=== PATIENT | male | born 1950 | race Two or more races ===

== ENCOUNTER 2020-10-22 15:44 | Inpatient (IN) | payer MEDICARE, OTHER ==
[~2020-10-22] VITALS: Ht 165.1 cm; Wt 77.6 kg
--- NOTE | 2020-10-22 16:43 | NUR ---
THE PATIENT BIBSELF FOR LEFT HEEL WOUND AND LOWER BACK PAIN. RATES PAIN 6/10. IN ROOM AIR AND DENIES SOB. RESPIRATION REGULAR AND UNLABORED. WILL CONTINUE TO MONITOR THE PATIENT.
[2020-10-22] MEDS ORDERED: MAG HYDROX/AL HYDROX/SIMETH 30 ML UDC PO ONE (17:00)
[2020-10-22] MEDS ORDERED: KETOROLAC TROMETHAMINE INJ 60 MG/2 ML VIAL IM ONE (17:00)
[2020-10-22] MEDS ORDERED: LIDOCAINE VISCOUS 2% UD 15 ML UDC MM ONE (17:00)
[2020-10-22] MEDS ORDERED: FAMOTIDINE (20 MG) 20 MG TABLET PO ONE (17:00)
[2020-10-22] MEDS ORDERED: CYCLOBENZAPRINE 10 MG TABLET PO ONE (17:00)
[2020-10-22] MEDS ORDERED: LIDOCAINE VISCOUS 2% UD 15 ML UDC ONE (17:27)
[2020-10-22] MEDS ORDERED: KETOROLAC TROMETHAMINE INJ 30 MG/ML VIAL ONE (17:27)
[2020-10-22] MEDS ORDERED: FAMOTIDINE (20 MG) 20 MG TABLET ONE (17:28)
[2020-10-22] MEDS ORDERED: MAG HYDROX/AL HYDROX/SIMETH 30 ML UDC ONE (17:28)
[2020-10-22] MEDS ORDERED: CYCLOBENZAPRINE 10 MG TABLET ONE (17:28)
[2020-10-22 18:03] LABS: BASOPHILS # (AUTO) 0.1 K/uL (0.0-0.2); BASOPHILS % (AUTO) 1.1 % (0.0-2.0); EOSINOPHILS % (AUTO) 3.8 % (0.0-6.0); HEMATOCRIT 37 % (33-45); HEMOGLOBIN 11.8 g/dL (11.5-14.8); LYMPHOCYTES % (AUTO) 23.1 % (20.0-44.0); MEAN CORPUSCULAR HGB CONC 32 g/dl (31.0-36.0); MEAN CORPUSCULAR VOLUME 86 fL (82-100); MONOCYTES # (AUTO) 1.2 K/uL (0.1-1.30); MONOCYTES % (AUTO) 9.3 % (2.0-12.0); NEUTROPHILS % (AUTO) 62.7 % (43.0-81.0); PLATELET COUNT (AUTO) 250 K/uL (150-450); RED BLOOD CELL COUNT(AUTO) 4.25 MIL/uL (4.0-5.2); WHITE BLOOD COUNT (AUTO) 12.8 K/uL (4.3-11.0)
[2020-10-22 18:11] LABS: CALCIUM, SERUM 8.4 mg/dL (8.5-10.1); CREATININE 0.9 mg/dL (0.6-1.3); POTASSIUM 3.7 mmol/L (3.5-5.1)
[2020-10-22 18:20] LABS: C-REACTIVE PROTEIN 0.3 mg/dL (0.0-0.9)
--- NOTE | 2020-10-22 18:36 | NUR ---
ANASTASIIA CRISIS LODE MINER CALLED FOR CONSULT. ETA 1 HOUR.
[2020-10-22] MEDS ORDERED: ACETAMINOPHEN 325 MG TABLET PO PRN (19:00)
[2020-10-22] MEDS ORDERED: MAG HYDROX/AL HYDROX/SIMETH 30 ML UDC PO PRN (19:00)
[2020-10-22] MEDS ORDERED: HYDROCODONE/APAP 10/325MG TABLET PO PRN (19:00)
[2020-10-22] MEDS ORDERED: Z GUARD REMEDY 2 OZ OINT TP PRN (19:00)
[2020-10-22] MEDS ORDERED: MAGNESIUM HYDROXIDE 30 ML UDC PO PRN (19:00)
[2020-10-22] MEDS ORDERED: DEXTROSE 50%-WATER 50 ML DISP.SYRIN IV PRN (19:00)
[2020-10-22] MEDS ORDERED: ONDANSETRON HCL/PF 4 MG/2 ML VIAL IVP PRN (19:00)
--- NOTE | 2020-10-22 19:15 | NUR ---
ROOM 105
--- NOTE | 2020-10-22 19:34 | NUR ---
CALLED LAB FOR PCR SWAB
--- NOTE | 2020-10-22 19:34 | NUR ---
REPORT GIVEN TO NURSE TUTU
--- NOTE | 2020-10-22 19:43 | NUR ---
COVID PCR SWAB DONE AND SENT TO THE LAB
--- NOTE | 2020-10-22 19:44 | NUR ---
THE PATIENT IS TRANSFERED TO ASSIGNED ROOM IN STABLE
[2020-10-22 20:00] VITALS: BP 138/70
[2020-10-22] MEDS: ATORVASTATIN 40 MG TABLET PO SCH (21:22)
[2020-10-22] MEDS: BLOOD SUGAR DIAGNOSTIC 1 EACH STRIP IN SCH (21:22)
[2020-10-22] MEDS: TRAZODONE 50 MG TABLET PO SCH (21:22)
[2020-10-22] MEDS: HYDROCODONE/APAP 5/325MG TABLET PO PRN (21:22)
[2020-10-22] MEDS: ENOXAPARIN SODIUM 40 MG/0.4 ML DISP.SYRIN SQ SCH (21:23)
[2020-10-22] MEDS: INSULIN REGULAR, HUMAN 100 UNIT/ML 3 ML VIAL SQ PRN (21:31)
[2020-10-23 04:00] VITALS: BP 105/60
[2020-10-23 06:13] LABS: BASOPHILS # (AUTO) 0.1 K/uL (0.0-0.2); BASOPHILS % (AUTO) 0.6 % (0.0-2.0); EOSINOPHILS % (AUTO) 6.4 % (0.0-6.0); HEMATOCRIT 37 % (33-45); LYMPHOCYTES # (AUTO) 2.6 K/uL (0.8-4.8); LYMPHOCYTES % (AUTO) 30.6 % (20.0-44.0); MEAN CORPUSCULAR HGB CONC 33 g/dl (31.0-36.0); MEAN CORPUSCULAR VOLUME 85 fL (82-100); MONOCYTES # (AUTO) 0.8 K/uL (0.1-1.30); MONOCYTES % (AUTO) 9.4 % (2.0-12.0); NEUTROPHILS # (AUTO) 4.5 K/uL (1.8-8.9); PLATELET COUNT (AUTO) 223 K/uL (150-450); RED BLOOD CELL COUNT(AUTO) 4.33 MIL/uL (4.0-5.2); WHITE BLOOD COUNT (AUTO) 8.6 K/uL (4.3-11.0)
[2020-10-23 06:51] LABS: THYROID STIMULATING HORMONE 0.925 uIU/mL (0.358-3.74)
[2020-10-23 07:48] LABS: CALCIUM, SERUM 8.4 mg/dL (8.5-10.1); POTASSIUM 3.9 mmol/L (3.5-5.1)
[2020-10-23 07:49] LABS: CREATININE 0.9 mg/dL (0.6-1.3); MAGNESIUM 2.1 mg/dL (1.8-2.4); PHOSPHORUS 2.9 mg/dL (2.5-4.9)
[2020-10-23] MEDS: PANTOPRAZOLE 40 MG TABLET.DR PO SCH (07:53)
--- NOTE | 2020-10-23 08:00 | NUR ---
RN NOTES PT IS STABLE AND A/O X3. PT IS AMBULATING AND BRP. PT IS DIABETIC AND HAS A NON HEALING L HEEL WOUND. PCR PENDING. WILL CONTINUE TO MONITOR. PT ON LOW BED POSITION, CALL LIGHT WITHIN REACH
[2020-10-23] MEDS: BLOOD SUGAR DIAGNOSTIC 1 EACH STRIP IN SCH ×4 (08:10→22:44)
[2020-10-23] MEDS: GABAPENTIN 400 MG CAPSULE PO SCH ×3 (08:14→17:06)
[2020-10-23] MEDS: MIRTAZAPINE 15 MG TABLET PO SCH (08:14)
[2020-10-23] MEDS: INSULIN REGULAR, HUMAN 100 UNIT/ML 3 ML VIAL SQ PRN ×4 (08:14→22:50)
[2020-10-23] MEDS: LISINOPRIL (20MG) 20 MG TABLET PO SCH (08:15)
[2020-10-23] MEDS ORDERED: GABA800T11 PO (08:52)
[2020-10-23] MEDS ORDERED: OMEP40CA21 PO (08:52)
[2020-10-23] MEDS ORDERED: LISI40TA13 PO (08:52)
[2020-10-23] MEDS ORDERED: TRAZ-257 PO (08:52)
[2020-10-23] MEDS ORDERED: MIRT-121 PO (08:52)
[2020-10-23] MEDS ORDERED: DOCU-141 PO (08:52)
[2020-10-23] MEDS ORDERED: ATOR20TA PO (08:52)
[2020-10-23] MEDS: HYDROCODONE/APAP 5/325MG TABLET PO PRN (11:34)
[2020-10-23 12:00] VITALS: BP 142/74
--- NOTE | 2020-10-23 18:58 | NUR ---
RN CLOSING NOTES; PT A/OX4, AMBULATORY AND CAN MAKE HIS NEEDS KNOWS. ALL MEDICATION GIVEN. PT CLEAN, DRY, AND COMFORTABLE WITH CALL LIGHT WITHIN REACH. ENDORSE TO ROLLER HELPER RN IN STABLE CONDITION.
[2020-10-23 20:00] VITALS: BP 122/60
--- NOTE | 2020-10-23 20:00 | NUR ---
ms rn notes PTS IN BED AWAKE ALERT X4 AND RESPONSIVE ABLE TO MAKE NEEDS KNOWN ,AMBULATORY , NO SOB NO DISTRESS NOTED ON R/A SATING 100% ALL DUE MEDS GIVEN ORDERED ,NO ASE NOTED. ALL NEEDS ATTENDED TOO ,KEPT PTS CLEAN DRY AND COMFORTABLE ,V/S STABLE AFEBRILE . WILL CONTINUE TO MONITOR PTS .
[2020-10-23] MEDS: ENOXAPARIN SODIUM 40 MG/0.4 ML DISP.SYRIN SQ SCH (21:18)
[2020-10-23] MEDS: TRAZODONE 50 MG TABLET PO SCH (21:19)
[2020-10-23] MEDS: ATORVASTATIN 40 MG TABLET PO SCH (21:19)
--- NOTE | 2020-10-23 22:00 | NUR ---
MS RN NOTES BLOOD SUGAR AT 10PM IS 195 MG/DL 3 UNITS OF INSULIN GIVEN PER SLIDING SCALE , PTS ON PO DIET , WILL CHECK BLOOD SUGAR AGAIN IN AM .
[2020-10-24 04:00] VITALS: BP 122/80
[2020-10-24 06:25] LABS: BASOPHILS # (AUTO) 0.1 K/uL (0.0-0.2); BASOPHILS % (AUTO) 0.7 % (0.0-2.0); EOSINOPHILS % (AUTO) 5.9 % (0.0-6.0); HEMATOCRIT 37 % (39-51); HEMOGLOBIN 12.3 g/dL (13.5-17.5); LYMPHOCYTES # (AUTO) 2.7 K/uL (0.8-4.8); LYMPHOCYTES % (AUTO) 26.5 % (20.0-44.0); MEAN CORPUSCULAR HGB CONC 33 g/dl (31.0-36.0); MEAN CORPUSCULAR VOLUME 85 fL (80-96); MONOCYTES # (AUTO) 0.9 K/uL (0.1-1.30); MONOCYTES % (AUTO) 9.1 % (2.0-12.0); NEUTROPHILS # (AUTO) 5.8 K/uL (1.8-8.9); NEUTROPHILS % (AUTO) 57.8 % (43.0-81.0); PLATELET COUNT (AUTO) 242 K/uL (150-450); RED BLOOD CELL COUNT(AUTO) 4.35 MIL/uL (4.5-6.0)
[2020-10-24 06:26] LABS: CALCIUM, SERUM 8.4 mg/dL (8.5-10.1); CREATININE 0.9 mg/dL (0.6-1.3)
--- NOTE | 2020-10-24 07:34 | NUR ---
MS RN NOTES ENDORSE PTS TO COLBY RN DAY SHIFT FOR CONTINUITY FOR CONTINUITY OF CARE
--- NOTE | 2020-10-24 07:57 | NUR ---
RN NOTES PT IS STABLE AND A/O X3. PT IS AMBULATING AND BRP. PT IS DIABETIC AND HAS A NON HEALING L HEEL WOUND. PCR PENDING. WILL CONTINUE TO MONITOR. PT CURRENTLY EATING. PT ON LOW BED POSITION, CALL LIGHT WITHIN REACH.
[2020-10-24] MEDS: BLOOD SUGAR DIAGNOSTIC 1 EACH STRIP IN SCH ×4 (08:22→23:34)
[2020-10-24] MEDS ORDERED: METF-440 PO (08:26)
[2020-10-24] MEDS: GABAPENTIN 400 MG CAPSULE PO SCH ×3 (08:27→17:15)
[2020-10-24] MEDS: PANTOPRAZOLE 40 MG TABLET.DR PO SCH (08:27)
[2020-10-24] MEDS: MIRTAZAPINE 15 MG TABLET PO SCH (08:39)
[2020-10-24] MEDS: LISINOPRIL (20MG) 20 MG TABLET PO SCH (08:39)
[2020-10-24] MEDS: INSULIN REGULAR, HUMAN 100 UNIT/ML 3 ML VIAL SQ PRN ×4 (08:42→23:33)
--- NOTE | 2020-10-24 09:30 | NUR ---
WOUND CARE CONSULT: PT PRESENTS WITH CALLUS TO RT HEEL AND OPEN AREA TO LEFT HEEL, NO DRAINAGE, PRESENT ON ADMISSION. PT STATES THAT LEFT HEEL IS TENDER. DPM CONSULT CALLED TO DR BELCZYK. DENSON IN AGREEMENT WITH PLAN OF CARE.
[2020-10-24] MEDS ORDERED: MUPIROCIN OINT 2% 22 GM TUBE TP SCH (10:00)
[2020-10-24] MEDS: MUPIROCIN OINT 2% 22 GM TUBE TP SCH ×2 (10:51→23:30)
[2020-10-24] MEDS: LIDOCAINE 5% (PATCH) 1 EA PATCH TP SCH (11:00)
[2020-10-24 12:00] VITALS: BP 118/77
--- NOTE | 2020-10-24 12:00 | NUR ---
per darien quiroz hold discharge until tomorrow patient psyche meds need to be reviewed by psychiatrist,watch case polisher made aware.
[2020-10-24] MEDS ORDERED: DULOXETINE HCL 30 MG CAPSULE.DR PO SCH (17:00)
--- NOTE | 2020-10-24 18:37 | NUR ---
RN CLOSING NOTES PT AWAKE AND STABLE. A/O X4 AND IS BEING DISCHARGED 10/25 MORNING. VS ARE STABLE. ACCUCHECK 154 AND GIVEN 2 UNITS INSULIN. SKIN INTACT. PT ABLE TO AMBULATE BRP. L ARM 20 GAUGE IV. PT L WOUND HEEL CHANGED TOFAY A @1000. WILL CONTINUE TO MONITOR
[2020-10-24 20:00] VITALS: BP 131/69
--- NOTE | 2020-10-24 20:00 | NUR ---
ms rn notes PTS IN BED AWAKE ALERT X4 AND RESPONSIVE ABLE TO MAKE NEEDS KNOWN ,AMBULATORY , NO SOB NO DISTRESS NOTED ON R/A SATING 98% ALL DUE MEDS GIVEN ORDERED ,NO ASE NOTED. ALL NEEDS ATTENDED TOO ,KEPT PTS CLEAN DRY AND COMFORTABLE ,V/S STABLE AFEBRILE . WILL CONTINUE TO MONITOR PTS .
[2020-10-24] MEDS: HYDROCODONE/APAP 5/325MG TABLET PO PRN (20:13)
[2020-10-24] MEDS: ENOXAPARIN SODIUM 40 MG/0.4 ML DISP.SYRIN SQ SCH (20:14)
[2020-10-24] MEDS: TRAZODONE 50 MG TABLET PO SCH (22:00)
[2020-10-24] MEDS: ATORVASTATIN 40 MG TABLET PO SCH (22:00)
--- NOTE | 2020-10-24 23:36 | NUR ---
ms rn notes Blood sugar of 179 mg/dl 3 units og regular insulin given per sliding sliding scale pts in po diet
[2020-10-25 04:00] VITALS: BP 93/53
--- NOTE | 2020-10-25 05:57 | NUR ---
MS RN NOTES PTS IN BED STABLE V/S NO PAIN COMPLAIN, NO SOB NO DISTRESS NOTED , POSSIBLE D/C TODAY ,ALL NEEDS MEET DURING THE SHIFT WILL ENDORSE TO RN DAY SHIFT FOR CONTINUITY OF CARE.
--- NOTE | 2020-10-25 07:30 | NUR ---
RN NOTE PATIENT OBSERVED ON BED AWAKE, ALERT AND ORIENTED X4 ABLE TO VERBALIZE NEEDS, ON ROOM AIR BREATHING O2 SAT OF 98% EVEN AND UNLABORED, BRP, WITH LEFT HAND GAUGE 20 PATENT, FLUSHING WELL, BED WHEELS LOCK, SAFETY MEASURES OBSERVED, CALL LIGHT WITHIN REACH, WILL CONTINUE TO MONITOR.
[2020-10-25] MEDS: PANTOPRAZOLE 40 MG TABLET.DR PO SCH (08:07)
[2020-10-25] MEDS: GABAPENTIN 400 MG CAPSULE PO SCH ×2 (08:09→13:35)
[2020-10-25] MEDS: LISINOPRIL (20MG) 20 MG TABLET PO SCH (08:09)
[2020-10-25] MEDS: BLOOD SUGAR DIAGNOSTIC 1 EACH STRIP IN SCH ×2 (08:23→12:08)
[2020-10-25] MEDS: INSULIN REGULAR, HUMAN 100 UNIT/ML 3 ML VIAL SQ PRN ×2 (08:24→12:18)
[2020-10-25] MEDS: LIDOCAINE 5% (PATCH) 1 EA PATCH TP SCH (11:20)
[2020-10-25] MEDS: MUPIROCIN OINT 2% 22 GM TUBE TP SCH (11:28)
[2020-10-25 12:00] VITALS: BP 124/71
--- NOTE | 2020-10-25 15:29 | NUR ---
RN NOTES PATIENT [facility]GED [facility]. REPORT GIVEN TO RN MORNING SHIFT. PATIENT PICKED VIA GURNEY BY [facility]. PATIENT LEFT STABLE AND VS WITHIN NORMAL LIMITS DURING DISCHARGED. PATIENT SIGNED BELONGING LIST AND HOME MEDICATION GIVEN DIRECTLY TO PATIENT. DISCHARGE INSTRUCTIONS GIVEN, PATIENT VERBALIZED UNDERSTANDING.
--- NOTE | 2020-10-25 15:29 | NUR ---
RN NOTE GAVE REPORT TO NURSE HATHAWAY.
[2020-10-25] MEDS ORDERED: MIRTAZAPINE 15 MG TABLET PO SCH ×2 (22:00)
== END 2020-10-25 15:32 | DRG 552 ==
LOC: ER 15:47 → MEDSG1 19:34 → EDSEX 19:34
PROVIDERS: ADMIT Nurse Practitioner Acute Care; ATTEND Nurse Practitioner Acute Care
DX: M54.40 Lumbago with sciatica, unspecified side (principal); F33.1 Major depressive disorder, recurrent, moderate; L97.429 Non-pressure chronic ulcer of left heel and midfoot with unspecified severity; E11.621 Type 2 diabetes mellitus with foot ulcer; E78.5 Hyperlipidemia, unspecified; E11.40 Type 2 diabetes mellitus with diabetic neuropathy, unspecified; E66.9 Obesity, unspecified; Z20.822 Contact with and (suspected) exposure to COVID-19; I10 Essential (primary) hypertension; Z79.84 Long term (current) use of oral hypoglycemic drugs; F41.9 Anxiety disorder, unspecified; Z68.28 Body mass index [BMI] 28.0-28.9, adult
CPT/HCPCS: 36415; 73630-TC; 80048-TC; 80061-TC; 82962-TC; 83735-TC; 84100-TC; 84443-TC; 85025-TC; 85652-TC; 86140-TC; 87081-TC; C9803; G0378; J1650; J1815; J1885; U0003

== ENCOUNTER 2021-10-12 20:08 | Emergency (ER) | payer MEDICARE, OTHER ==
[~2021-10-12] VITALS: Ht 180.3 cm; Wt 86.2 kg
[~2021-10-12 20:08] MED LIST: ATOR20TA PO; DOCU-141 PO; GABA800T11 PO; LISI40TA13 PO; METF-440 PO; MIRT-121 PO; OMEP40CA21 PO; TRAZ-257 PO
[2021-10-12 20:29] VITALS: BP 91/48
--- NOTE | 2021-10-12 20:57 | NUR ---
ALMA FROM [facility] FOR WORSENING CHRONINC BACK PAIN. S/P LOWER BACK SURGERY 09/16. PT A/OX4. TOLERATING R/A WELL WITH NO SOB. AMBULATORY WITH ASSISTANCE.
[2021-10-12] MEDS ORDERED: MAG HYDROX/AL HYDROX/SIMETH 30 ML UDC PO ONE (21:30)
[2021-10-12] MEDS ORDERED: HYDROCODONE/APAP 5/325MG TABLET PO ONE (21:30)
[2021-10-12] MEDS ORDERED: MAG HYDROX/AL HYDROX/SIMETH 30 ML UDC ONE (21:54)
[2021-10-12] MEDS ORDERED: HYDROCODONE/APAP 5/325MG TABLET ONE (21:55)
--- NOTE | 2021-10-12 22:32 | NUR ---
[facility] CALLED FOR TRANSPORT. ETA 20-30 MINUTES.
--- NOTE | 2021-10-12 22:33 | NUR ---
REPORT GIVEN TO MAGGY FROM [facility]
--- NOTE | 2021-10-12 22:47 | NUR ---
REPORT GIVEN TO NIXON LANDON UNIT 230. [facility] AT PT'S BEDSIDE TO D/C,
== END 2021-10-12 23:12 ==
LOC: ER 20:10
DX: G89.29 Other chronic pain (principal); M54.50 Low back pain, unspecified; I10 Essential (primary) hypertension; E11.9 Type 2 diabetes mellitus without complications; Z79.899 Other long term (current) drug therapy
CPT/HCPCS: 72131-TC

== ENCOUNTER 2021-10-31 13:04 | Inpatient (IN) | payer MEDICARE, OTHER ==
[~2021-10-31] VITALS: Ht 170.2 cm; Wt 72.6 kg
--- NOTE | 2021-10-31 13:25 | NUR ---
SHAY LEW FROM SNF, SEND FOR AGRESSIVE BEHAVIOR. MEDICAL AND PSYCH CLEARANCE FOR GPS ADMISSION. COOPERATIVE COMMUNITY HEALTH PROGRAM COORDINATOR C/O LOWER BACK PAIN. PLACED ON BED, AAOX4, COOPERATIVE- CALM, BREATHING EVEN AND UNLABORED.
[2021-10-31] MEDS ORDERED: ATOR40TA PO (13:30)
[2021-10-31] MEDS ORDERED: ARGI1POW13 PO (13:30)
[2021-10-31] MEDS ORDERED: AMIN887L PO (13:30)
[2021-10-31] MEDS ORDERED: DEXT15DR6 EACHEYE (13:30)
[2021-10-31] MEDS ORDERED: INSU100V3 IJ (13:30)
[2021-10-31] MEDS ORDERED: HYDR-3980 PO (13:30)
[2021-10-31] MEDS ORDERED: MULT-447 PO (13:30)
[2021-10-31] MEDS ORDERED: ACET325T53 PO (13:30)
[2021-10-31] MEDS ORDERED: CYCL10TA9 PO (13:30)
[2021-10-31] MEDS ORDERED: ASPI-1169 PO (13:30)
[2021-10-31] MEDS ORDERED: NA P133E RC (13:30)
[2021-10-31] MEDS ORDERED: CALC500T53 PO (13:30)
[2021-10-31] MEDS ORDERED: LORA-259 PO (13:30)
[2021-10-31] MEDS ORDERED: PANT40TA2 PO (13:30)
[2021-10-31] MEDS ORDERED: BISA10SU11 RC (13:30)
[2021-10-31] MEDS ORDERED: CALC-494 PO (13:30)
[2021-10-31] MEDS ORDERED: OLAN5TAB3 PO (13:30)
[2021-10-31] MEDS ORDERED: DULO60CA45 PO (13:30)
[2021-10-31] MEDS ORDERED: ASCO500C17 PO (13:30)
[2021-10-31] MEDS ORDERED: SENN-175 PO (13:30)
--- NOTE | 2021-10-31 13:55 | NUR ---
COVID SWAB COLLECTED AND SENT TO LAB
[2021-10-31 14:01] LABS: BASOPHILS # (AUTO) 0.1 K/uL (0.0-0.2); BASOPHILS % (AUTO) 0.7 % (0.0-2.0); EOSINOPHILS % (AUTO) 4.3 % (0.0-6.0); HEMATOCRIT 37 % (39-51); HEMOGLOBIN 11.8 g/dL (13.5-17.5); LYMPHOCYTES # (AUTO) 1.7 K/uL (0.8-4.8); LYMPHOCYTES % (AUTO) 20.6 % (20.0-44.0); MEAN CORPUSCULAR HGB CONC 32 g/dl (31.0-36.0); MEAN CORPUSCULAR VOLUME 86 fL (80-96); MONOCYTES % (AUTO) 11.6 % (2.0-12.0); NEUTROPHILS # (AUTO) 5.2 K/uL (1.8-8.9); NEUTROPHILS % (AUTO) 62.8 % (43.0-81.0); PLATELET COUNT (AUTO) 336 K/uL (150-450); RED BLOOD CELL COUNT(AUTO) 4.29 MIL/uL (4.5-6.0); WHITE BLOOD COUNT (AUTO) 8.3 K/uL (4.3-11.0)
--- NOTE | 2021-10-31 14:20 | NUR ---
URINE SAMPLE SENT TO LAB
[2021-10-31 14:29] LABS: CALCIUM, SERUM 8.8 mg/dL (8.5-10.1); CARBON DIOXIDE 26 mmol/L (21-32); CHLORIDE 101 mmol/L (98-107); CREATININE 1.1 mg/dL (0.6-1.3); GLUCOSE 257 mg/dL (74-106); POTASSIUM 4.7 mmol/L (3.5-5.1); SODIUM SERUM 135 mmol/L (136-145); UREA NITROGEN, BLOOD 18 mg/dL (7-18)
[2021-10-31 14:50] LABS: BILIRUBIN,URINE NEGATIVE (NEGATIVE); COLOR,URINE YELLOW (YELLOW); LEUKOCYTE ESTERASE ,URINE NEGATIVE (NEGATIVE); NITRITE, URINE NEGATIVE (NEGATIVE); PROTEIN,URINE NEGATIVE (NEGATIVE); UGLUCOSE 500 MG/DL mg/dL (NEGATIVE); UROBILINOGEN,URINE 0.2 EU/dL (0.2)
[2021-10-31 15:03] LABS: ACETAMINOPHEN 6 ug/ml (10-30); ALANINE AMINOTRANSFERASE 23 U/L (12-78); ALKALINE PHOSPHATASE 105 U/L (46-116); ASPARTATE AMINOTRANSFERASE 21 U/L (15-37); BILIRUBIN,DIRECT 0.1 mg/dL (0.0-0.2); BILIRUBIN,TOTAL 0.3 mg/dL (0.2-1.0); TOTAL PROTEIN, SERUM 7.5 g/dL (6.4-8.2)
[2021-10-31 15:06] LABS: ALCOHOL, BLOOD < 3 mg/dL (0-0)
[2021-10-31 15:28] LABS: BACTERIA,URINE None seen /HPF (None Seen); RBC,URINE 0-2 /HPF (0-2); SQUAMOUS EPITHELIAL CELL,UR 0-2 /HPF (None Seen); WBC,URINE 0-2 /HPF (0-3)
[2021-10-31] MEDS ORDERED: BISACODYL SUPP (10 MG) 10 MG/SUPP.RECT SUPP.RECT RC PRN (16:30)
[2021-10-31] MEDS ORDERED: NA PHOS,M-B/NA PHOS,DI-BA 1 EA ENEMA RC PRN (16:30)
--- NOTE | 2021-10-31 16:46 | NUR ---
REPORT GIVEN TO ARTURO PIERSON ROOM 213 FOR SHANITA
[2021-10-31 17:45] VITALS: BP 136/72
--- NOTE | 2021-10-31 17:46 | NUR ---
GPS/RN RECEIVED PT FROM ER ON 515 FOR GD ORIGINALLY FROM [facility]. ON FACE TO FACE ASSESSMENT NO SI/HI REPORTED.ADMITTING ORDERS FROM DR RUSSO RECEIVED AND CARRIED OUT. DR KEEN SEEN THE PT. FOOD TRAY ORDERED. BELONGINGS CHECKED FOR CONTRABAND. WILL ENDORSE TO STONE PROCESSING MACHINE OPERATOR TO CONTINUE WITH ADMISSION.
[2021-10-31 17:58] VITALS: BP 136/72
[2021-10-31] MEDS ORDERED: ACETAMINOPHEN 325 MG TABLET PO PRN (18:00)
[2021-10-31] MEDS ORDERED: BLOOD SUGAR DIAGNOSTIC 1 EACH STRIP IN ONE ×2 (18:00→21:30)
[2021-10-31] MEDS ORDERED: QUETIAPINE FUMARATE 25 MG TABLET PO PRN (18:00)
[2021-10-31] MEDS: DOCUSATE SODIUM 100 MG CAPSULE PO SCH (18:17)
[2021-10-31] MEDS: CYCLOBENZAPRINE 10 MG TABLET PO SCH (18:17)
[2021-10-31] MEDS: HYDROCODONE/APAP 10/325MG TABLET PO PRN (19:44)
[2021-10-31] MEDS: MAG HYDROX/AL HYDROX/SIMETH 30 ML UDC PO PRN (19:47)
--- NOTE | 2021-10-31 19:47 | NUR ---
RN NOTES: PAIN PT. C/O LOWER BACK PAIN 10/24 PRN NARCO 10 MG/325 MG 1 TAB PO GIVEN PER PT. REQUEST, WILL CONTINUE TO MONITOR.
--- NOTE | 2021-10-31 19:49 | NUR ---
RN NOTES: PT. C/O OF INDIGESTION PRN MAALOX 30 ML GIVEN PER PT. REQUEST, WILL CONTINUE TO MONITOR.
--- NOTE | 2021-10-31 20:24 | NUR ---
RN NOTES: RECEIVED PATIENT RESTING IN ROOM, NO S/SX OF ACUTE DISTRESS NOTED.EASILY AGITATED, ANXIOUS, DISORGANIZED,NEEDY , PARANOID, NEEDS FREQUENT REDIRECTION. DENIES SI/HI AT THIS TIME.ENCOURAGE TO VERBALIZED ANY FEELING OR CONCERN, SAFETY MEASURES IN PLACE. WILL CONTINUE TO MONITOR Q15MIN ROUNDS FOR SAFETY AND BEHAVIOR.
[2021-10-31 20:38] VITALS: BP 126/77
[2021-10-31] MEDS: SENNOSIDES 8.6 MG TABLET PO SCH (21:21)
[2021-10-31 22:00] VITALS: BP 125/74
[2021-10-31] MEDS ORDERED: DEXTROSE 50%-WATER 50 ML DISP.SYRIN IV PRN (22:00)
[2021-10-31] MEDS: BLOOD SUGAR DIAGNOSTIC 1 EACH STRIP IN SCH (22:05)
[2021-10-31] MEDS: INSULIN REGULAR, HUMAN 100 UNIT/ML 3 ML VIAL SQ PRN (22:07)
[2021-10-31] MEDS: ZOLPIDEM TARTRATE 5 MG TABLET PO PRN (22:11)
--- NOTE | 2021-10-31 22:11 | NUR ---
RN NOTES: INSOMNIA PATIENT IS C/O UNABLE TO SLEEP, ANXIOUS, RESTLESS. PRN AMBIEN 5 MG PO ADMINISTERED ORDERED BY MD. WILL CONTINUE TO MONITOR .
--- NOTE | 2021-10-31 23:49 | NUR ---
RN NOTES : ADMISSION NOTES: ADMITTED THIS 71Y/O MALE PATIENT FROM [facility] ADMITTED TO 5150 HOLD GD , PER HOLD PT. NON COMPLIANT WITH CARE, AGGRESSIVE TOWARDS STAFF AND OTHER RESIDENTS. UPON FACE TO FACE ASSESSMENT PATIENT IS A&O X3, ANXIOUS ,EASILY AGITATED, RESTLESS ,PARANOID ,DISHELVED , NEEDY DEMEDNING , HYPERVERBAL ,BIZAAR BEHAVIOR, JUMPING ONE TOPIC TO ANOTHER, NEEDS FREQUENTLY REDIRECTIONS , DENIES SI /HI AT THIS TIME, PT. IS POOR HISTORIAN, POOR INSIGHT ,POOR JUDGEMENT , BOTH MD AWARE AND NOTIFIED OF THE ADMISSION, BELONGINGS CONTRABAND WERE DONE , PT. REFUSED SIGNS ADMISSION CONSENT PAPER DUE TO TIRED, REFUSED ID PHOTOS FOR CHART , ,ENCOURAGED PT. TO TAKE SHOWER, PT. RIGHTS DISCUSS BY TECHNICAL ASSISTANCE CONSULTANT , PROVIDE THE PT. WITH HANDBOOK, AND MEDICATIONS GUIDE, ENVIRONMENTAL SAFETY CHECK DONE, ENCOURAGED PT. VERBALIZED ANY FEELING CONCERN TO STAFF, ORIENT TO UNIT POLICY, NO ACUTE DISTRESS NOTED,VITAL SIGNS WNL ,DENIES ANY PAIN AT THIS TIME,WILL CONTINUE TO MONITOR FOR Q15 SAFETY AND BEHAVIOR.
[2021-11-01] MEDS: HYDROCODONE/APAP 10/325MG TABLET PO PRN ×2 (01:53→16:04)
--- NOTE | 2021-11-01 01:54 | NUR ---
DANGELO NOTES : ANXIETY PT. C/O LOWER BACK PAIN 09/23 PRN NARCO 10 MG/325 MG 1 TAB PO GIVEN PER PT. REQUEST, WILL CONTINUE TO MONITOR. Addendum: 11/01/21 at 0155 by JESSICA FERRER RN PAIN
--- NOTE | 2021-11-01 01:55 | NUR ---
RN NOTES : PAIN PT. C/O LOWER BACK PAIN 09/23 PRN NARCO 10 MG/325 MG 1 TAB PO GIVEN PER PT. REQUEST, WILL CONTINUE TO MONITOR.
--- NOTE | 2021-11-01 07:12 | NUR ---
RN NOTES: PLACED CALLED PT'S DAUGHTER ALBARO # [phone] AND LEFT MESSAGES REGARDING ABOUT PT. ADMIT TO NEHA PRITCHETT.
[2021-11-01 07:24] LABS: ALBUMIN 2.9 g/dL (3.4-5.0); BILIRUBIN,TOTAL 0.4 mg/dL (0.2-1.0); CALCIUM, SERUM 8.8 mg/dL (8.5-10.1); CREATININE 1.1 mg/dL (0.6-1.3); POTASSIUM 3.9 mmol/L (3.5-5.1); TOTAL PROTEIN, SERUM 7.3 g/dL (6.4-8.2)
[2021-11-01 07:31] LABS: CHOLESTEROL 118 mg/dL (<200); HDL CHOLESTEROL 41 mg/dL (40-60); LDL 60 mg/dL (0-99); TRIGLYCERIDES 109 mg/dL (30-150)
[2021-11-01] MEDS: BLOOD SUGAR DIAGNOSTIC 1 EACH STRIP IN SCH ×4 (07:53→21:34)
[2021-11-01 08:00] VITALS: BP 128/78
[2021-11-01] MEDS: INSULIN REGULAR, HUMAN 100 UNIT/ML 3 ML VIAL SQ PRN ×4 (08:05→21:37)
[2021-11-01] MEDS ORDERED: DULOXETINE HCL 30 MG CAPSULE.DR PO SCH (09:00)
[2021-11-01] MEDS: PANTOPRAZOLE 40 MG TABLET.DR PO SCH (09:12)
[2021-11-01] MEDS: POLYVINYL ALCOHOL 15 ML BOTTLE EACHEYE SCH (09:12)
[2021-11-01] MEDS: CYCLOBENZAPRINE 10 MG TABLET PO SCH ×2 (09:12→16:34)
[2021-11-01] MEDS: LISINOPRIL (20MG) 20 MG TABLET PO SCH (09:13)
[2021-11-01] MEDS: ASPIRIN 81 MG TAB.CHEW PO SCH (09:13)
[2021-11-01] MEDS: ACETAMINOPHEN 325 MG TABLET PO SCH (09:13)
[2021-11-01] MEDS: DOCUSATE SODIUM 100 MG CAPSULE PO SCH ×2 (09:13→16:33)
[2021-11-01] MEDS: MULTIVIT W/MINERALS 1 TAB TABLET PO SCH (09:13)
[2021-11-01] MEDS: CALCIUM CARBONATE (1250) 500 MG TABLET PO SCH (09:15)
[2021-11-01] MEDS ORDERED: NALOXONE PREFILLED SYRINGE 2 MG/2 ML SYRINGE ONE (10:42)
[2021-11-01] MEDS ORDERED: ONDANSETRON HCL/PF 4 MG/2 ML VIAL ONE (10:45)
[2021-11-01 16:00] VITALS: BP 102/69
--- NOTE | 2021-11-01 16:04 | NUR ---
RN NOTES PRN NORCO 10/325 MG 1 TAB GIVEN FOR BACK PAIN 09/23. WILL REASSESS IN 45 MINUTES.
[2021-11-01] MEDS: MAGNESIUM HYDROXIDE 30 ML UDC PO PRN (16:11)
--- NOTE | 2021-11-01 16:12 | NUR ---
RN NOTES PATIENT REQUESTED MOM FOR CONSTIPATION. MOM GIVEN AT 1612 FOR CONSTIPATION.
[2021-11-01] MEDS: QUETIAPINE FUMARATE 25 MG TABLET PO SCH (16:33)
[2021-11-01] MEDS: ATORVASTATIN 40 MG TABLET PO SCH (17:41)
[2021-11-01 19:35] VITALS: BP 100/58
[2021-11-01 20:05] VITALS: BP 100/58
[2021-11-01] MEDS: SENNOSIDES 8.6 MG TABLET PO SCH (21:09)
[2021-11-01] MEDS: TRAZODONE 50 MG TABLET PO SCH (21:09)
[2021-11-01] MEDS: MAG HYDROX/AL HYDROX/SIMETH 30 ML UDC PO PRN (21:20)
--- NOTE | 2021-11-01 21:22 | NUR ---
RN NOTE: PRN MAALOX GIVEN PATIENT C/O INDIGESTION/UPSET STOMACH AND REQUESTED TO TAKE MEDICINE. PRN MAALOX 30 ML PO ADMINISTERED. WILL CONTINUE TO MONITOR FOR ANY CHANGES.
[2021-11-01] MEDS ORDERED: OLANZAPINE 5 MG TABLET PO SCH (22:00)
[2021-11-01 23:45] VITALS: BP 109/74
[2021-11-01] MEDS: ZOLPIDEM TARTRATE 5 MG TABLET PO PRN (23:54)
[2021-11-02] MEDS: BLOOD SUGAR DIAGNOSTIC 1 EACH STRIP IN SCH ×4 (07:30→21:18)
[2021-11-02 08:00] VITALS: BP 131/75
[2021-11-02] MEDS: LISINOPRIL (20MG) 20 MG TABLET PO SCH (09:28)
[2021-11-02] MEDS: DOCUSATE SODIUM 100 MG CAPSULE PO SCH ×2 (09:28→17:15)
[2021-11-02] MEDS: CYCLOBENZAPRINE 10 MG TABLET PO SCH ×2 (09:28→17:15)
[2021-11-02] MEDS: MULTIVIT W/MINERALS 1 TAB TABLET PO SCH (09:28)
[2021-11-02] MEDS: QUETIAPINE FUMARATE 25 MG TABLET PO SCH ×2 (09:29→17:15)
[2021-11-02] MEDS: CALCIUM CARBONATE (1250) 500 MG TABLET PO SCH (09:29)
[2021-11-02] MEDS: PANTOPRAZOLE 40 MG TABLET.DR PO SCH (09:32)
[2021-11-02] MEDS: ASPIRIN 81 MG TAB.CHEW PO SCH (09:32)
[2021-11-02] MEDS: ACETAMINOPHEN 325 MG TABLET PO SCH (09:39)
[2021-11-02] MEDS: POLYVINYL ALCOHOL 15 ML BOTTLE EACHEYE SCH (09:46)
--- NOTE | 2021-11-02 09:55 | NUR ---
THELMA Clinical Note: Pt placed on a hold for 5150 for GD. Pt has been aggressive towards staff and has been depressed. Patient currently resides at [address] [place] [phone], . THELMA contacted admin was unavailable THELMA left a message through supervisor painting shipyard Elvi who took the message to Juanita admin if pt can return back.
--- NOTE | 2021-11-02 09:55 | NUR ---
THELMA Initial Discharge Note: Patient currently resides at [address] [place] [phone], . THELMA contacted admin was unavailable THELMA left a message through receptionist secretary Elvi who took the message to Juanita khan if pt can return back. THELMA will work with the MD, family, and pt to help coordinate appropriate discharge.
--- NOTE | 2021-11-02 09:56 | NUR ---
Treatment Plan: Pt refused to sign treatment plan and was suspicious.
--- NOTE | 2021-11-02 11:23 | NUR ---
THELMA Family Contact: THELMA attempted to contact patient's daughter Ashley ([phone]) and was unavailable. THELMA was unable to leave voicemail at this time.
[2021-11-02] MEDS: INSULIN REGULAR, HUMAN 100 UNIT/ML 3 ML VIAL SQ PRN ×3 (11:34→21:21)
--- NOTE | 2021-11-02 11:34 | NUR ---
SNF Contact: THELMA mitchell with Juanita khan from [address] [facility], [place] [address], who stated that they cannot accept pt back due to pt requiring a psych facility.
[2021-11-02 16:00] VITALS: BP 115/69
[2021-11-02] MEDS: ATORVASTATIN 40 MG TABLET PO SCH (18:12)
[2021-11-02 20:01] VITALS: BP 126/74
[2021-11-02] MEDS: HYDROCODONE/APAP 10/325MG TABLET PO PRN (20:20)
--- NOTE | 2021-11-02 20:24 | NUR ---
GPS RN NOTES: PATIENT REQUESTED FOR PAIN MEDICATION D/T BACK PAIN. HYDROCODONE 10/325MG GIVEN PO AT 2020. WILL CONTINUE TO MONITOR.
[2021-11-02] MEDS: DIVALPROEX SODIUM 125 MG TABLET.DR PO SCH (20:56)
[2021-11-02] MEDS: MAG HYDROX/AL HYDROX/SIMETH 30 ML UDC PO PRN (20:57)
--- NOTE | 2021-11-02 20:58 | NUR ---
GPS RN NOTES: PATIENT C/O INDIGESTION. MAALOX 30ML GIVEN PO AT 2056. WILL CONTINUE TO MONITOR.
[2021-11-02] MEDS ORDERED: QUETIAPINE FUMARATE 25 MG TABLET PO SCH (21:00)
[2021-11-02] MEDS: TRAZODONE 50 MG TABLET PO SCH (21:01)
[2021-11-02] MEDS: SENNOSIDES 8.6 MG TABLET PO SCH (21:01)
[2021-11-02] MEDS: ZOLPIDEM TARTRATE 5 MG TABLET PO PRN (22:17)
--- NOTE | 2021-11-02 22:18 | NUR ---
GPS RN NOTES: AMBIEN 5MG GIVEN PO AT 2217. WILL CONTINUE TO MONITOR.
[2021-11-03] MEDS: HYDROCODONE/APAP 10/325MG TABLET PO PRN ×2 (04:45→22:22)
--- NOTE | 2021-11-03 04:47 | NUR ---
RN note: patient c/o of back pain,yelling,screaming of pain,requested and given [id number] PO as ordered.Will monitor for the effectiveness within a hour.
[2021-11-03 07:05] LABS: ALBUMIN 3.1 g/dL (3.4-5.0); BILIRUBIN,TOTAL 0.4 mg/dL (0.2-1.0); CALCIUM, SERUM 9.4 mg/dL (8.5-10.1); POTASSIUM 4.1 mmol/L (3.5-5.1); TOTAL PROTEIN, SERUM 7.9 g/dL (6.4-8.2)
[2021-11-03 08:00] VITALS: BP 120/68
[2021-11-03] MEDS: BLOOD SUGAR DIAGNOSTIC 1 EACH STRIP IN SCH ×4 (08:02→21:29)
[2021-11-03] MEDS: DOCUSATE SODIUM 100 MG CAPSULE PO SCH ×2 (09:20→16:46)
[2021-11-03] MEDS: ASPIRIN 81 MG TAB.CHEW PO SCH (09:20)
[2021-11-03] MEDS: CYCLOBENZAPRINE 10 MG TABLET PO SCH ×2 (09:20→16:46)
[2021-11-03] MEDS: MULTIVIT W/MINERALS 1 TAB TABLET PO SCH (09:20)
[2021-11-03] MEDS: PANTOPRAZOLE 40 MG TABLET.DR PO SCH (09:20)
[2021-11-03] MEDS: CALCIUM CARBONATE (1250) 500 MG TABLET PO SCH (09:20)
[2021-11-03] MEDS: LISINOPRIL (20MG) 20 MG TABLET PO SCH (09:21)
[2021-11-03] MEDS: POLYVINYL ALCOHOL 15 ML BOTTLE EACHEYE SCH (09:22)
[2021-11-03] MEDS: DIVALPROEX SODIUM 125 MG TABLET.DR PO SCH ×3 (09:24→20:15)
[2021-11-03] MEDS: INSULIN REGULAR, HUMAN 100 UNIT/ML 3 ML VIAL SQ PRN ×4 (09:26→21:25)
[2021-11-03] MEDS: ACETAMINOPHEN 325 MG TABLET PO SCH (09:34)
[2021-11-03] MEDS: MAG HYDROX/AL HYDROX/SIMETH 30 ML UDC PO PRN ×2 (13:45→20:26)
--- NOTE | 2021-11-03 14:10 | NUR ---
SNF Referral: SW [facility] clinicals to [facility] [address] [place] [address], . SW sent H & P, progress notes, and medication list for placement.
[2021-11-03 16:00] VITALS: BP 111/67
[2021-11-03] MEDS: METHYL SALICYLATE/MENTHOL 28GM 28 GM TUBE TP SCH (16:26)
[2021-11-03] MEDS: ATORVASTATIN 40 MG TABLET PO SCH (17:42)
--- NOTE | 2021-11-03 19:23 | NUR ---
RN-NOTES PATIENT VISIBLE IN THE UNIT,A/O X3 GUARDED,NO ACUTE DISTRESS NOTED.COMPLIANT WITH MEDICATIONS.NOTED PATIENT WITH NEEDY,DEMANDING ,EASILY ANGRY AND ARGUMENTATIVE BEHAVIOR.ALL NEEDS ATTENDED AND ANTICIPATED. AMBULATORY WITH WALKER. WILL CONT. MONITORING FOR SAFETY AND BEHAVIOR. WILL ENDORSE TO INCOMING NURSE FOR CONTINUITY OF CARE.
[2021-11-03 20:07] VITALS: BP 115/64
[2021-11-03] MEDS: QUETIAPINE FUMARATE 25 MG TABLET PO SCH (20:25)
[2021-11-03] MEDS: SENNOSIDES 8.6 MG TABLET PO SCH (21:04)
[2021-11-03] MEDS: TRAZODONE 50 MG TABLET PO SCH (21:04)
[2021-11-03] MEDS: MAGNESIUM HYDROXIDE 30 ML UDC PO PRN (22:30)
[2021-11-03] MEDS: ZOLPIDEM TARTRATE 5 MG TABLET PO PRN (22:53)
[2021-11-04 08:00] VITALS: BP 103/69
[2021-11-04] MEDS: BLOOD SUGAR DIAGNOSTIC 1 EACH STRIP IN SCH ×4 (08:19→21:19)
[2021-11-04] MEDS: LISINOPRIL (20MG) 20 MG TABLET PO SCH (09:00)
--- NOTE | 2021-11-04 09:00 | NUR ---
NURSE NOTE: PT UP IN ROOM. DOING AM CARE. BREATHING EVEN AND NONLABORED. PT A/O X3 GUARDED,NO ACUTE DISTRESS NOTED. COMPLIANT WITH MEDICATIONS. AMBULATORY WITH WALKER. WILL CONT MONITOR.
[2021-11-04] MEDS: CALCIUM CARBONATE (1250) 500 MG TABLET PO SCH (09:22)
[2021-11-04] MEDS: ASPIRIN 81 MG TAB.CHEW PO SCH (09:22)
[2021-11-04] MEDS: CYCLOBENZAPRINE 10 MG TABLET PO SCH ×2 (09:22→17:41)
[2021-11-04] MEDS: ACETAMINOPHEN 325 MG TABLET PO SCH (09:22)
[2021-11-04] MEDS: PANTOPRAZOLE 40 MG TABLET.DR PO SCH (09:22)
[2021-11-04] MEDS: MULTIVIT W/MINERALS 1 TAB TABLET PO SCH (09:25)
[2021-11-04] MEDS: DOCUSATE SODIUM 100 MG CAPSULE PO SCH ×2 (09:25→17:41)
[2021-11-04] MEDS: DIVALPROEX SODIUM 125 MG TABLET.DR PO SCH ×3 (09:25→20:40)
[2021-11-04] MEDS: INSULIN REGULAR, HUMAN 100 UNIT/ML 3 ML VIAL SQ PRN ×4 (09:28→22:10)
[2021-11-04] MEDS: METHYL SALICYLATE/MENTHOL 28GM 28 GM TUBE TP SCH (09:38)
[2021-11-04] MEDS: POLYVINYL ALCOHOL 15 ML BOTTLE EACHEYE SCH (09:38)
--- NOTE | 2021-11-04 10:36 | NUR ---
Court Notification: No contact to notify for 4228.
--- NOTE | 2021-11-04 12:54 | NUR ---
Court Hearing: Patient's court hearing for 2590 was today and it was upheld for GD.
[2021-11-04 16:00] VITALS: BP 108/75
[2021-11-04] MEDS: ATORVASTATIN 40 MG TABLET PO SCH (17:41)
--- NOTE | 2021-11-04 18:00 | NUR ---
NURSE NOTE: PT C/O PAIN AT THIS TIME LEVEL 9/10. ASKED FOR NORCO. ADMINISTERED ORDERED. WILL CONT TO MONITOR.
[2021-11-04] MEDS: MAG HYDROX/AL HYDROX/SIMETH 30 ML UDC PO PRN ×2 (18:18→22:58)
[2021-11-04] MEDS: HYDROCODONE/APAP 10/325MG TABLET PO PRN (18:18)
[2021-11-04 20:00] VITALS: BP 128/70
[2021-11-04] MEDS: QUETIAPINE FUMARATE 25 MG TABLET PO SCH (20:40)
[2021-11-04] MEDS: TRAZODONE 50 MG TABLET PO SCH (21:09)
[2021-11-04] MEDS: SENNOSIDES 8.6 MG TABLET PO SCH (21:09)
--- NOTE | 2021-11-04 23:00 | NUR ---
RN NOTE: PRN MAALOX GIVEN PATIENT C/O UPSET STOMACH AND INSISTED TO TAKE MAALOX AT THIS TIME. PRN MAALOX 30 ML PO ADMINISTERED ORDERED BY .
[2021-11-05] MEDS: ZOLPIDEM TARTRATE 5 MG TABLET PO PRN (01:08)
--- NOTE | 2021-11-05 01:12 | NUR ---
RN NOTE: INSOMNIA PATIENT C/O INABILITY TO SLEEP AND INSISTED TO TAKE SLEEPING MEDICINE RIGHT NOW. PRN AMBIEN 5 MG PO ADMINISTERED ORDERED BY .
[2021-11-05 08:00] VITALS: BP 128/88
[2021-11-05] MEDS: BLOOD SUGAR DIAGNOSTIC 1 EACH STRIP IN SCH ×4 (08:27→21:31)
[2021-11-05] MEDS: METHYL SALICYLATE/MENTHOL 28GM 28 GM TUBE TP SCH (08:27)
[2021-11-05] MEDS: DOCUSATE SODIUM 100 MG CAPSULE PO SCH ×2 (08:28→16:17)
[2021-11-05] MEDS: PANTOPRAZOLE 40 MG TABLET.DR PO SCH (08:28)
[2021-11-05] MEDS: POLYVINYL ALCOHOL 15 ML BOTTLE EACHEYE SCH (08:28)
[2021-11-05] MEDS: CYCLOBENZAPRINE 10 MG TABLET PO SCH ×2 (08:28→16:18)
[2021-11-05] MEDS: DIVALPROEX SODIUM 125 MG TABLET.DR PO SCH ×3 (08:28→20:37)
[2021-11-05] MEDS: CALCIUM CARBONATE (1250) 500 MG TABLET PO SCH (08:28)
[2021-11-05] MEDS: ASPIRIN 81 MG TAB.CHEW PO SCH (08:28)
[2021-11-05] MEDS: MULTIVIT W/MINERALS 1 TAB TABLET PO SCH (08:28)
[2021-11-05] MEDS: LISINOPRIL (20MG) 20 MG TABLET PO SCH (08:29)
[2021-11-05] MEDS: INSULIN REGULAR, HUMAN 100 UNIT/ML 3 ML VIAL SQ PRN ×4 (08:31→21:33)
[2021-11-05] MEDS: ACETAMINOPHEN 325 MG TABLET PO SCH (08:35)
--- NOTE | 2021-11-05 09:19 | NUR ---
Individual Therapy: SW met with pt to conduct brief therapy. Pt stated that he has been depressed because he lost his two years ago and it has caused him depression. SW actively listened and provided emotional support.
--- NOTE | 2021-11-05 09:20 | NUR ---
THELMA Note: SW notified that pt cannot return back to [facility] due to his behavior at the facility and they are unable to manage his behavior. He was in denial but agreeable of this comic book writer to find him a different facility.
[2021-11-05 16:00] VITALS: BP 108/68
[2021-11-05] MEDS: ATORVASTATIN 40 MG TABLET PO SCH (17:06)
--- NOTE | 2021-11-05 19:18 | NUR ---
RN-NOTES PATIENT VISIBLE IN THE UNIT,A/O X3 GUARDED,NO ACUTE DISTRESS NOTED. COMPLIANT WITH MEDICATIONS. NOTED WITH NEEDY, EASILY ANGRY AND ARGUMENTATIVE BEHAVIOR. AMBULATORY WITH WALKER. ALL NEEDS ATTENDED AND ANTICIPATED. WILL CONT.MONITORING FOR SAFETY AND BEHAVIOR.WILL ENDORSE TO INCOMING NURSE FOR CONTINUITY OF CARE.
[2021-11-05] MEDS: MAG HYDROX/AL HYDROX/SIMETH 30 ML UDC PO PRN (19:27)
--- NOTE | 2021-11-05 19:53 | NUR ---
GPS MIXING PLANT OPERATOR NOTE: PATIENT RCVD AWAKE, IN HIS BEDROOM,A/O X3 GUARDED,AMBULATORY USING WALKER ,NO ACUTE DISTRESS NOTED.NOTED PATIENT WITH NEEDY,DEMANDING ,EASILY ANGRY AND ARGUMENTATIVE BEHAVIOR.WILL ANTICIPATE AND ATTEND NEEDS. WILL CONT. MONITORING FOR SAFETY AND BEHAVIOR.
[2021-11-05 20:00] VITALS: BP 104/67
[2021-11-05] MEDS: QUETIAPINE FUMARATE 25 MG TABLET PO SCH (20:34)
[2021-11-05] MEDS: SENNOSIDES 8.6 MG TABLET PO SCH (21:09)
[2021-11-05] MEDS: TRAZODONE 50 MG TABLET PO SCH (21:09)
[2021-11-05] MEDS: HYDROCODONE/APAP 10/325MG TABLET PO PRN (21:25)
--- NOTE | 2021-11-05 21:25 | NUR ---
Pt c/o lover back pain 10/24 requesting for PRN [place] medication, PRN given as ordered. Pt noted with very demanding , needy and argumentative behavior. Cont to anticipate and attend pt's needs.
--- NOTE | 2021-11-05 23:30 | NUR ---
Pt sleeping at this time, easy to arouse, will cont to monitor and anticipate needs.
[2021-11-06] MEDS: HYDROCODONE/APAP 10/325MG TABLET PO PRN ×2 (04:47→22:55)
--- NOTE | 2021-11-06 04:48 | NUR ---
Pt woke up and used call light- nurse attended pt's needs, pt c/o lower back pain again 09/23 and is requesting for prn [place] pain medicine, PRN given as ordered. Will cont to monitor.
--- NOTE | 2021-11-06 05:48 | NUR ---
FISHER OYSTER CLOSING NOTE PATIENT SLEPT WELL DURING SHIFT, IN HIS BEDROOM AWAKE ,A/O X3 GUARDED,NO ACUTE DISTRESS NOTED.COMPLIANT WITH MEDICATIONS.NOTED PATIENT NEEDY,DEMANDING ,EASILY ANGRY AND ARGUMENTATIVE BEHAVIOR.ALL NEEDS ATTENDED AND ANTICIPATED. AMBULATORY WITH WALKER. WILL CONT. MONITORING FOR SAFETY AND BEHAVIOR. WILL ENDORSE TO INCOMING AM NURSE FOR CONTINUITY OF CARE.
[2021-11-06] MEDS: BLOOD SUGAR DIAGNOSTIC 1 EACH STRIP IN SCH ×4 (06:54→21:36)
[2021-11-06] MEDS: INSULIN REGULAR, HUMAN 100 UNIT/ML 3 ML VIAL SQ PRN ×4 (06:55→22:28)
[2021-11-06 07:47] LABS: ALBUMIN 2.9 g/dL (3.4-5.0); BILIRUBIN,TOTAL 0.4 mg/dL (0.2-1.0); CALCIUM, SERUM 8.6 mg/dL (8.5-10.1); CREATININE 1.1 mg/dL (0.6-1.3); POTASSIUM 3.9 mmol/L (3.5-5.1); TOTAL PROTEIN, SERUM 7.6 g/dL (6.4-8.2)
[2021-11-06 08:00] VITALS: BP 100/60
[2021-11-06] MEDS: MULTIVIT W/MINERALS 1 TAB TABLET PO SCH (08:07)
[2021-11-06] MEDS: PANTOPRAZOLE 40 MG TABLET.DR PO SCH (08:07)
[2021-11-06] MEDS: DIVALPROEX SODIUM 125 MG TABLET.DR PO SCH ×3 (08:07→20:52)
[2021-11-06] MEDS: CALCIUM CARBONATE (1250) 500 MG TABLET PO SCH (08:08)
[2021-11-06] MEDS: DOCUSATE SODIUM 100 MG CAPSULE PO SCH ×2 (08:09→17:28)
[2021-11-06] MEDS: CYCLOBENZAPRINE 10 MG TABLET PO SCH ×2 (08:09→17:28)
[2021-11-06] MEDS: ASPIRIN 81 MG TAB.CHEW PO SCH (08:10)
[2021-11-06] MEDS: ACETAMINOPHEN 325 MG TABLET PO SCH (08:10)
[2021-11-06] MEDS: LISINOPRIL (20MG) 20 MG TABLET PO SCH (08:10)
[2021-11-06] MEDS: METHYL SALICYLATE/MENTHOL 28GM 28 GM TUBE TP SCH (08:11)
[2021-11-06] MEDS: POLYVINYL ALCOHOL 15 ML BOTTLE EACHEYE SCH (08:11)
[2021-11-06] MEDS: QUETIAPINE FUMARATE 25 MG TABLET PO SCH ×2 (08:12→20:51)
--- NOTE | 2021-11-06 09:00 | NUR ---
NURSE NOTE: PT AWAKE AND IN BED. BREATHING EVEN AND NONLABORED. PT A/O X3 GUARDED. COMPLIANT WITH MEDS AND ACCU CHECK.,NO DISTRESS NOTED. AMBULATORY WITH WALKER. WILL CONT. MONITORING FOR SAFETY AND BEHAVIOR.
[2021-11-06 16:00] VITALS: BP 116/59
[2021-11-06] MEDS: ATORVASTATIN 40 MG TABLET PO SCH (17:28)
--- NOTE | 2021-11-06 18:56 | NUR ---
RN-NOTES PATIENT VISIBLE IN THE UNIT,A/O X3 GUARDED,NO ACUTE DISTRESS NOTED. COMPLIANT WITH MEDICATIONS. NOTED WITH NEEDY, EASILY ANGRY BEHAVIOR. AMBULATORY WITH WALKER. ALL NEEDS ATTENDED AND ANTICIPATED. WILL CONT.MONITORING FOR SAFETY AND BEHAVIOR.WILL ENDORSE TO INCOMING NURSE FOR CONTINUITY OF CARE.
[2021-11-06 20:30] VITALS: BP 105/60
[2021-11-06] MEDS: MAG HYDROX/AL HYDROX/SIMETH 30 ML UDC PO PRN (20:52)
[2021-11-06] MEDS: SENNOSIDES 8.6 MG TABLET PO SCH (21:30)
[2021-11-06] MEDS: TRAZODONE 50 MG TABLET PO SCH (21:30)
--- NOTE | 2021-11-06 22:57 | NUR ---
RN NOTE: PAIN PATIENT C/O LOWER BACK PAIN 09/23 AND WANTED TO TAKE PAIN MEDICATION. PRN NORCO 10-325 MG PO ADMINISTERED. WILL CONTINUE TO MONITOR.
[2021-11-07] MEDS: BLOOD SUGAR DIAGNOSTIC 1 EACH STRIP IN SCH ×4 (07:42→21:09)
[2021-11-07 08:00] VITALS: BP 110/74
[2021-11-07] MEDS: CYCLOBENZAPRINE 10 MG TABLET PO SCH ×2 (08:38→16:28)
[2021-11-07] MEDS: DOCUSATE SODIUM 100 MG CAPSULE PO SCH ×2 (08:39→16:28)
[2021-11-07] MEDS: MULTIVIT W/MINERALS 1 TAB TABLET PO SCH (08:39)
[2021-11-07] MEDS: QUETIAPINE FUMARATE 25 MG TABLET PO SCH ×2 (08:39→20:22)
[2021-11-07] MEDS: ASPIRIN 81 MG TAB.CHEW PO SCH (08:39)
[2021-11-07] MEDS: CALCIUM CARBONATE (1250) 500 MG TABLET PO SCH (08:39)
[2021-11-07] MEDS: ACETAMINOPHEN 325 MG TABLET PO SCH (08:39)
[2021-11-07] MEDS: PANTOPRAZOLE 40 MG TABLET.DR PO SCH (08:39)
[2021-11-07] MEDS: DIVALPROEX SODIUM 125 MG TABLET.DR PO SCH ×3 (08:40→20:24)
[2021-11-07] MEDS: POLYVINYL ALCOHOL 15 ML BOTTLE EACHEYE SCH (08:40)
[2021-11-07] MEDS: METHYL SALICYLATE/MENTHOL 28GM 28 GM TUBE TP SCH (08:42)
[2021-11-07] MEDS: LISINOPRIL (20MG) 20 MG TABLET PO SCH (08:44)
[2021-11-07] MEDS: INSULIN REGULAR, HUMAN 100 UNIT/ML 3 ML VIAL SQ PRN ×3 (08:46→21:09)
[2021-11-07 16:00] VITALS: BP 106/70
[2021-11-07] MEDS: ATORVASTATIN 40 MG TABLET PO SCH (17:22)
--- NOTE | 2021-11-07 18:00 | NUR ---
RN-NOTES PATIENT VISIBLE IN THE UNIT,A/O X3 GUARDED,AMBULATORY WITH WALKER NO ACUTE DISTRESS NOTED.COMPLIANT WITH MEDICATIONS.NOTED PATIENT WITH NEEDY,DEMANDING EASILY ANGRY BEHAVIOR,YELLING AT STAFF USING FOUL LANGUAGE.ALL NEEDS ATTENDED AND ANTICIPATED. WILL CONT. MONITORING FOR SAFETY AND BEHAVIOR.WILL ENDORSE TO INCOMING NURSE FOR CONTINUITY OF CARE.
--- NOTE | 2021-11-07 19:15 | NUR ---
GPS RN NOTES RECEIVED PATIENT RESTING IN BED COMFORTABLY. A/OX3, NO S/SX OF ACUTE DISTRESS NOTED. PATIENT REMAINS ANXIOUS, DEMANDING, NEEDY, EASILY IRRITATED, SETTING LIMITS. DENIES SI/HI/AVH AT THIS TIME. VERBALIZATION OF FEELINGS ENCOURAGED. SAFETY MEASURES IN PLACE. WILL CONTINUE TO MONITOR Q15MIN ROUNDS FOR SAFETY AND BEHAVIOR.
[2021-11-07] MEDS: MAG HYDROX/AL HYDROX/SIMETH 30 ML UDC PO PRN (20:31)
[2021-11-07 20:57] VITALS: BP 120/68
[2021-11-07] MEDS: SENNOSIDES 8.6 MG TABLET PO SCH (21:02)
[2021-11-07] MEDS: TRAZODONE 50 MG TABLET PO SCH (21:02)
[2021-11-08] MEDS: HYDROCODONE/APAP 10/325MG TABLET PO PRN (01:22)
[2021-11-08] MEDS: BLOOD SUGAR DIAGNOSTIC 1 EACH STRIP IN SCH ×4 (07:30→21:21)
[2021-11-08 08:00] VITALS: BP 127/78
[2021-11-08] MEDS: CALCIUM CARBONATE (1250) 500 MG TABLET PO SCH (09:13)
[2021-11-08] MEDS: CYCLOBENZAPRINE 10 MG TABLET PO SCH ×2 (09:13→16:30)
[2021-11-08] MEDS: PANTOPRAZOLE 40 MG TABLET.DR PO SCH (09:13)
[2021-11-08] MEDS: DOCUSATE SODIUM 100 MG CAPSULE PO SCH ×2 (09:13→16:30)
[2021-11-08] MEDS: QUETIAPINE FUMARATE 25 MG TABLET PO SCH ×2 (09:13→21:11)
[2021-11-08] MEDS: LISINOPRIL (20MG) 20 MG TABLET PO SCH (09:13)
[2021-11-08] MEDS: ASPIRIN 81 MG TAB.CHEW PO SCH (09:13)
[2021-11-08] MEDS: MULTIVIT W/MINERALS 1 TAB TABLET PO SCH (09:14)
[2021-11-08] MEDS: DIVALPROEX SODIUM 125 MG TABLET.DR PO SCH ×3 (09:14→21:10)
[2021-11-08] MEDS: METHYL SALICYLATE/MENTHOL 28GM 28 GM TUBE TP SCH (09:17)
[2021-11-08] MEDS: ACETAMINOPHEN 325 MG TABLET PO SCH (09:17)
[2021-11-08] MEDS: POLYVINYL ALCOHOL 15 ML BOTTLE EACHEYE SCH (09:20)
--- NOTE | 2021-11-08 10:49 | NUR ---
RN NOTE- PT ALERT ORIENTED MAKES NEEDS KNOWN , YELLING AT TIMES DEMANDING , MED COMPLIANT WITHDRAWN ISOLATIVE
[2021-11-08] MEDS: INSULIN REGULAR, HUMAN 100 UNIT/ML 3 ML VIAL SQ PRN ×3 (12:15→21:21)
[2021-11-08 16:00] VITALS: BP 100/58
[2021-11-08] MEDS: ATORVASTATIN 40 MG TABLET PO SCH (17:18)
[2021-11-08 20:23] VITALS: BP 100/64
[2021-11-08] MEDS: TRAZODONE 50 MG TABLET PO SCH (21:12)
[2021-11-08] MEDS: MAGNESIUM HYDROXIDE 30 ML UDC PO PRN (21:13)
[2021-11-08] MEDS: SENNOSIDES 8.6 MG TABLET PO SCH (21:13)
[2021-11-08] MEDS: MAG HYDROX/AL HYDROX/SIMETH 30 ML UDC PO PRN (21:13)
[2021-11-08] MEDS: ZOLPIDEM TARTRATE 5 MG TABLET PO PRN (21:14)
--- NOTE | 2021-11-08 21:28 | NUR ---
Pt c/o insomnia. Least restrictive measures ineffective. Ambien 5 mg po prn given as ordered. Will continue to monitor.
--- NOTE | 2021-11-08 22:33 | NUR ---
Post 1 hr lakiaien effective. Pt asleep in bed easy to arouse. Frequent visual check done for safety. Will continue to monitor. Will endorse to next shift.
--- NOTE | 2021-11-09 04:27 | NUR ---
Pt c/o pain 04/23. Requested for tylenol 650 mg po prn. Tylenol 650 mg po given. Will continue to monitor.
--- NOTE | 2021-11-09 05:30 | NUR ---
Post 1 hr Tylenol effective. ND 0/10. Will continue to monitor. Will endorse to next shift.
[2021-11-09] MEDS: BLOOD SUGAR DIAGNOSTIC 1 EACH STRIP IN SCH ×4 (07:52→22:30)
[2021-11-09 08:00] VITALS: BP 102/66
[2021-11-09] MEDS: METHYL SALICYLATE/MENTHOL 28GM 28 GM TUBE TP SCH (08:48)
[2021-11-09] MEDS: POLYVINYL ALCOHOL 15 ML BOTTLE EACHEYE SCH (08:48)
[2021-11-09] MEDS: ACETAMINOPHEN 325 MG TABLET PO SCH (08:49)
[2021-11-09] MEDS: DIVALPROEX SODIUM 125 MG TABLET.DR PO SCH ×3 (08:50→21:20)
[2021-11-09] MEDS: ASPIRIN 81 MG TAB.CHEW PO SCH (08:50)
[2021-11-09] MEDS: CYCLOBENZAPRINE 10 MG TABLET PO SCH ×2 (08:50→17:45)
[2021-11-09] MEDS: CALCIUM CARBONATE (1250) 500 MG TABLET PO SCH (08:50)
[2021-11-09] MEDS: PANTOPRAZOLE 40 MG TABLET.DR PO SCH (08:50)
[2021-11-09] MEDS: DOCUSATE SODIUM 100 MG CAPSULE PO SCH ×2 (08:50→17:43)
[2021-11-09] MEDS: QUETIAPINE FUMARATE 25 MG TABLET PO SCH ×2 (08:51→21:22)
[2021-11-09] MEDS: LISINOPRIL (20MG) 20 MG TABLET PO SCH (08:54)
[2021-11-09] MEDS: MULTIVIT W/MINERALS 1 TAB TABLET PO SCH (09:55)
[2021-11-09] MEDS: INSULIN REGULAR, HUMAN 100 UNIT/ML 3 ML VIAL SQ PRN ×3 (12:48→22:34)
--- NOTE | 2021-11-09 14:28 | NUR ---
SNF Contact: SW spoke with [facility] [address] [place] [address], who stated that they do not have a bed available.
--- NOTE | 2021-11-09 14:28 | NUR ---
SNF Referral: THELMA sent clinicals to Nichole bill from [facility] ([phone]) for placement option. THELMA sent H & P, progress notes, and medication list.
[2021-11-09] MEDS: MAG HYDROX/AL HYDROX/SIMETH 30 ML UDC PO PRN ×2 (15:23→21:28)
[2021-11-09 16:00] VITALS: BP 111/73
--- NOTE | 2021-11-09 16:06 | NUR ---
SNF Contact: THELMA sent clinicals to Nichole khan from [facility] ([phone]) who stated pt is accepted.
[2021-11-09] MEDS: ATORVASTATIN 40 MG TABLET PO SCH (17:43)
[2021-11-09] MEDS: ZOLPIDEM TARTRATE 5 MG TABLET PO PRN (21:33)
[2021-11-09] MEDS: TRAZODONE 50 MG TABLET PO SCH (22:36)
[2021-11-09] MEDS: SENNOSIDES 8.6 MG TABLET PO SCH (22:36)
[2021-11-09 22:50] VITALS: BP 120/66
[2021-11-10] MEDS: BLOOD SUGAR DIAGNOSTIC 1 EACH STRIP IN SCH ×4 (07:35→21:33)
[2021-11-10 08:00] VITALS: BP 122/75
[2021-11-10] MEDS: MULTIVIT W/MINERALS 1 TAB TABLET PO SCH (08:41)
[2021-11-10] MEDS: POLYVINYL ALCOHOL 15 ML BOTTLE EACHEYE SCH (08:41)
[2021-11-10] MEDS: LISINOPRIL (20MG) 20 MG TABLET PO SCH (08:42)
[2021-11-10] MEDS: PANTOPRAZOLE 40 MG TABLET.DR PO SCH (08:42)
[2021-11-10] MEDS: ASPIRIN 81 MG TAB.CHEW PO SCH (08:42)
[2021-11-10] MEDS: ACETAMINOPHEN 325 MG TABLET PO SCH (08:43)
[2021-11-10] MEDS: DOCUSATE SODIUM 100 MG CAPSULE PO SCH ×2 (08:43→17:14)
[2021-11-10] MEDS: CALCIUM CARBONATE (1250) 500 MG TABLET PO SCH (08:43)
[2021-11-10] MEDS: DIVALPROEX SODIUM 125 MG TABLET.DR PO SCH ×4 (08:43→21:23)
[2021-11-10] MEDS: CYCLOBENZAPRINE 10 MG TABLET PO SCH ×2 (08:43→17:14)
[2021-11-10] MEDS: QUETIAPINE FUMARATE 25 MG TABLET PO SCH ×3 (08:44→21:22)
[2021-11-10] MEDS: METHYL SALICYLATE/MENTHOL 28GM 28 GM TUBE TP SCH (08:52)
[2021-11-10] MEDS: INSULIN REGULAR, HUMAN 100 UNIT/ML 3 ML VIAL SQ PRN ×4 (10:48→21:34)
[2021-11-10] MEDS: HYDROCODONE/APAP 10/325MG TABLET PO PRN ×2 (14:26→15:27)
[2021-11-10 16:10] VITALS: BP 100/63
[2021-11-10] MEDS: ATORVASTATIN 40 MG TABLET PO SCH (17:14)
--- NOTE | 2021-11-10 19:15 | NUR ---
GPS RN NOTES RECEIVED PATIENT RESTING IN BED COMFORTABLY. A/OX3, NO S/SX OF ACUTE DISTRESS NOTED. PATIENT IS COOPERATIVE TO CARE, NEEDY, DEMANDING, DENIES SI/HI/AVH AT THIS TIME. VERBALIZATION OF FEELINGS ENCOURAGED. SAFETY MEASURES IN PLACE. WILL CONTINUE TO MONITOR Q15MIN ROUNDS FOR SAFETY AND BEHAVIOR.
[2021-11-10] MEDS: TRAZODONE 50 MG TABLET PO SCH ×2 (21:22→21:54)
[2021-11-10] MEDS: SENNOSIDES 8.6 MG TABLET PO SCH (21:22)
--- NOTE | 2021-11-10 21:55 | NUR ---
GPS RN NOTES PATIENT BLOOD PRESSURE IS ON THE LOW SIDE 92/57, HR 74. RECHECKED BP 83/54, HR 85. OFFERED FLUIDS AND HEAD OF THE BED ELEVATED. PT HAS NO C/O DIZZINESS OR LIGHTHEADEDNESS AT THIS TIME. PATIENT NIGHT MEDS ARE DEPAKOTE, SEROQUEL AND TRAZADONE. NOTIFIED DR. RUSSO REGARDING ABOVE FINDINGS. DR. RUSSO ORDERED TO HOLD THE MEDS AND PUSH FLUIDS. CHARGE NURSE AWARE.
[2021-11-10] MEDS: MAG HYDROX/AL HYDROX/SIMETH 30 ML UDC PO PRN (22:04)
[2021-11-10 22:05] VITALS: BP 92/57
[2021-11-11] MEDS: ZOLPIDEM TARTRATE 5 MG TABLET PO PRN (00:19)
--- NOTE | 2021-11-11 00:19 | NUR ---
GPS RN NOTES PATIENT C/O INABILITY TO SLEEP. PRN AMBIEN 5MG PO ORDERED PER PT'S REQUEST. V/S TAKEN BP 109/80, HR 79. WILL CONTINUE TO MONITOR.
[2021-11-11] MEDS: BLOOD SUGAR DIAGNOSTIC 1 EACH STRIP IN SCH ×2 (06:55→11:57)
[2021-11-11] MEDS: INSULIN REGULAR, HUMAN 100 UNIT/ML 3 ML VIAL SQ PRN ×2 (06:57→12:00)
--- NOTE | 2021-11-11 07:50 | NUR ---
RN OPENING NOTE PATIENT AWAKE IN BED, RESTING. A/O X3, ANXIOUS, EASILY AGITATED. NO S/S OF PAIN NOTED AT THIS TIME. ON ROOM AIR, NO DISTRESS OR SHORTNESS OF BREATH NOTED. PATIENT COMPLAINT WITH MEDICATION. PATIENT DENIES SUICIDE IDEATION AND HOMICIDAL IDEATION AT THIS TIME. PATIENT EDUCATED ON THE USE OF CALL FARRIS. FALL AND SAFETY MEASURES IN PLACE, BED ALARM ON, BED IN LOW AND LOCK POSITION, CALL LIGHT AND TABLE WITHIN EASY REACH, SIDE RAILS UP X2. WILL CONTINUE TO MONITOR Q15 MINUTES WITH THE HELP OF STAFF TO MAINTAIN SAFETY.
[2021-11-11 08:00] VITALS: BP 105/71
--- NOTE | 2021-11-11 09:17 | NUR ---
SW Discharge Note: Patient will be discharged to a locked snf facility to [facility] [address] [place] [address]; ([phone]). Please arrange ambulance transportation. Architecture Faculty Member spoke with Nichole, Archery Equipment Hay Sorter at [facility]; ([phone]), who stated patient will be accepted at facility today. Patient is alert and oriented x3. Patient denies any suicidal or homicidal ideations. Patient is aware and agreeable with discharge plans. Patient does not have any supportive contact at this time. Patient will continue to follow-up with her (Psychiatrist) Dr. Ramirez [address] [place] [address]; ([phone]) and [address]ven [address]ender Dr. Mukherjee [address] [address]; ([phone]). Patient presents with euthymic mood and congruent affect.
[2021-11-11] MEDS: METHYL SALICYLATE/MENTHOL 28GM 28 GM TUBE TP SCH (09:21)
[2021-11-11] MEDS: DOCUSATE SODIUM 100 MG CAPSULE PO SCH (09:22)
[2021-11-11] MEDS: ASPIRIN 81 MG TAB.CHEW PO SCH (09:22)
[2021-11-11] MEDS: POLYVINYL ALCOHOL 15 ML BOTTLE EACHEYE SCH (09:22)
[2021-11-11] MEDS: PANTOPRAZOLE 40 MG TABLET.DR PO SCH (09:22)
[2021-11-11] MEDS: MULTIVIT W/MINERALS 1 TAB TABLET PO SCH (09:23)
[2021-11-11] MEDS: DIVALPROEX SODIUM 125 MG TABLET.DR PO SCH (09:23)
[2021-11-11 09:24] VITALS: BP 105/71
[2021-11-11] MEDS: LISINOPRIL (20MG) 20 MG TABLET PO SCH (09:24)
[2021-11-11] MEDS: CALCIUM CARBONATE (1250) 500 MG TABLET PO SCH (09:24)
[2021-11-11] MEDS: CYCLOBENZAPRINE 10 MG TABLET PO SCH (09:24)
[2021-11-11] MEDS: QUETIAPINE FUMARATE 25 MG TABLET PO SCH (09:24)
[2021-11-11] MEDS: ACETAMINOPHEN 325 MG TABLET PO SCH (09:24)
--- NOTE | 2021-11-11 12:30 | NUR ---
RN-CO: DR RUSSO ORDERED TO DISCONTINUE HOLD AND DISCHARGE PATIENT TO SNF, NOTED. DR KEEN MEDICALLY CLEARED FOR DISCHARGE..
--- NOTE | 2021-11-11 13:00 | NUR ---
RN-CO: PATIENT IS CALM AND COOPERATIVE TO CARE. DENIED SUICIDAL AND HOMICIDAL IDEATION, DENIED AH/VH.
--- NOTE | 2021-11-11 14:01 | NUR ---
KITCHEN STEWARD/STEWARDESS NOTE 71 YEAR OLD MALE DISCHARGE TO [facility] IN STABLE MEDICAL CONDITION. COMPLAINT WITH MEDICATIONS, COOPERATIVE WITH TREATMENT PLANS. PATIENT DENIES SI/HI AND INSTRUCTED TO GO TO THE CLOSER ER IF DEVELOPING SI/HI. BEHAVIOR IMPROVED, PSYCHIATRIC TX PLANS MET, MEDICAL TX PLANS DEFERRED FOR CONTINUAL MONITORING. EDUCATED PATIENT ABOUT AFTER CARE PLAN (EXIT-CARE) AND COPY PROVIDED. RETURNED PERSONAL BELONGINGS TO PATIENT. MEDICATIONS RECONCILED WITH RAFAELA (PSYCHIATRIS), OSMANI (MED. INT). REPORT GIVEN TO RUDDY AT [facility] FOR CONTINUITY OF CARE. DISCHARGE PAPER SIGNED, HEALTH TEACHING AND DISCHARGE INSTRUCTIONS GIVEN AND VERBALIZED UNDERSTANDING. SKIN ASSESSMENT DONE, SKIN INTACT. NAME ARM BAND REMOVED. ALL BELONGINGS CHECKED AND SIGNED. PATIENT LEFT UNIT VIA GURNEY WITH NO SIGNS OF DISTRESS, ACCOMPANIED BY PARAMEDICS. CHARGE NURSE AWARE OF DISCHARGED.
== END 2021-11-11 13:55 | DRG 885 ==
LOC: ER 13:09 → GPS 16:04
PROVIDERS: ADMIT Psychiatry & Neurology Psychiatry; ATTEND Internal Medicine
DX: F39 Unspecified mood [affective] disorder (principal); E11.65 Type 2 diabetes mellitus with hyperglycemia; F41.9 Anxiety disorder, unspecified; E78.5 Hyperlipidemia, unspecified; G47.00 Insomnia, unspecified; G89.29 Other chronic pain; Z87.891 Personal history of nicotine dependence; I10 Essential (primary) hypertension; F10.21 Alcohol dependence, in remission; F20.9 Schizophrenia, unspecified; Z20.822 Contact with and (suspected) exposure to COVID-19; Z73.6 Limitation of activities due to disability; F29 Unspecified psychosis not due to a substance or known physiological condition; M62.81 Muscle weakness (generalized); M19.90 Unspecified osteoarthritis, unspecified site; K21.9 Gastro-esophageal reflux disease without esophagitis; F31.9 Bipolar disorder, unspecified; Z79.4 Long term (current) use of insulin
CPT/HCPCS: 36415; 80048-TC; 80053-TC; 80061-TC; 80076-TC; 80164-TC; 81001; 82565-TC; 82962-TC; 85025-TC; 87081-TC; C9803; G0480; J1815; J2310; J2405